=== PATIENT | male | born 1980 | race Caucasian/White ===

== ENCOUNTER 2023-08-09 10:39 | Inpatient (IN) | payer SELFPAY ==
[~2023-08-09] VITALS: Ht 175.3 cm; Wt 58.1 kg
[2023-08-09 10:49] VITALS: O2SAT 96
[2023-08-09 11:02] LABS: BASOPHILS % 0.4 % (0.0-2.0); EOSINOPHILS % 0.4 % (0.0-5.0); HEMATOCRIT. 35.8 % (42.0-52.0); HEMOGLOBIN. 12.2 g/dL (14.0-18.0); LYMPHOCYTES % 39.5 % (20.0-50.0); MEAN CORPUSCULAR HEMOGLOBIN 30.2 pg (28.0-32.0); MEAN CORPUSCULAR HGB CONC 34.2 g/dL (31.0-37.0); MEAN CORPUSCULAR VOLUME 88.4 fL (80.0-94.0); MEAN PLATELET VOLUME 7.3 fl (7.4-10.4); MONOCYTES % 8.4 % (2.0-8.0); NEUTROPHILS % 51.3 % (40.0-76.0); PLATELET 311 x1000/uL (130-400); RED BLOOD CELL COUNT 4.05 mill/uL (4.7-6.1); RED CELL DISTRIBUTION WIDTH 13.6 % (11.6-14.6)
[2023-08-09 11:24] LABS: ALANINE AMINOTRANSFERASE 19 IU/L (10-49); ALBUMIN 3.8 g/dL (3.2-4.8); ASPARTATE AMINOTRANSFERASE 25 IU/L (<34); BILIRUBIN TOTAL 0.7 mg/dL (0.1-1.0); CALCIUM 8.4 mg/dL (8.7-10.4); CARBON DIOXIDE 29 mEq/L (21-32); CHLORIDE 104 mEq/L (98-107); CREATININE 0.7 mg/dL (0.6-1.3); GLUCOSE 174 mg/dL (70-105); POTASSIUM 3.1 mEq/L (3.5-5.1); SODIUM 138 mEq/L (136-145); UREA NITROGEN BLOOD 11 mg/dL (9-23)
[2023-08-09 11:32] LABS: ETHANOL BLOOD < 10 mg/dL (<10)
[2023-08-10 02:33] LABS: CLARITY URINE CLEAR (CLEAR); COLOR URINE YELLOW (YELLOW); GLUCOSE URINE NEGATIVE (NEGATIVE); KETONES URINE 1+ (NEGATIVE); LEUKOCYTE ESTERASE URINE NEGATIVE (NEGATIVE); NITRITE URINE NEGATIVE (NEGATIVE); OCCULT BLOOD URINE NEGATIVE (NEGATIVE); PROTEIN URINE TRACE (NEGATIVE); SPECIFIC GRAVITY URINE 1.021 (1.005-1.030)
[2023-08-10 02:56] LABS: RBC URINE 0-2 /hpf (0-2); WBC URINE 0-2 /hpf (0-2)
[2023-08-10 02:57] LABS: BACTERIA URINE NONE SEEN; SQUAMOUS EPITHELIAL CELL URINE FEW /lpf (RARE/1+)
[2023-08-10 03:54] LABS: *AMPHETAMINES SCREEN URINE NEGATIVE (NEGATIVE); *BARBITURATES SCREEN URINE NEGATIVE (NEGATIVE); *BENZODIAZEPINES SCREEN URINE NEGATIVE (NEGATIVE); *COCAINE SCREEN URINE NEGATIVE (NEGATIVE); ECSTASY MDMA SCREEN URINE NEGATIVE (NEGATIVE); METHADONE URINE SCREEN Neg (NEGATIVE); OPIATES URINE SCREEN NEGATIVE (NEGATIVE); PHENCYCLIDINE URINE SCREEN NEGATIVE (NEGATIVE)
[2023-08-10 10:24] VITALS: BP 123/78; PULSE 89; RESP 18; TEMP 97.8
[2023-08-10] MEDS ORDERED: ONDANSETRON HCL 4MG/2ML INJ IV PRN (10:30)
[2023-08-10] MEDS ORDERED: ACETAMINOPHEN 325MG TABLET PO PRN (10:30)
[2023-08-10 10:50] VITALS: BP 123/78; PULSE 89; RESP 18; TEMP 97.8
[2023-08-10] MEDS ORDERED: POTASSIUM CHLORIDE 20MEQ TABLET SR PO NR (12:00)
[2023-08-10 16:00] VITALS: BP 116/70; PULSE 96; RESP 18; TEMP 98.1
[2023-08-10 20:00] VITALS: BP 108/68; PULSE 107; RESP 20; TEMP 99.6
[2023-08-11 04:00] VITALS: BP 124/71; PULSE 107; RESP 19; TEMP 98.6
[2023-08-11 08:00] VITALS: BP 143/75; PULSE 99; RESP 18; TEMP 98.1
[2023-08-11 12:00] VITALS: BP 132/71; PULSE 95; RESP 18; TEMP 98
[2023-08-11 16:00] VITALS: BP 107/66; PULSE 96; RESP 18; TEMP 98.8
[2023-08-11 20:54] VITALS: BP 117/68; PULSE 96; RESP 16; TEMP 98.2
[2023-08-12 00:26] VITALS: BP 116/74; PULSE 84; RESP 19; TEMP 97.8
[2023-08-12 04:00] VITALS: BP 93/60; PULSE 92; RESP 19; TEMP 97.8
[2023-08-12 08:00] VITALS: BP 130/78; PULSE 94; RESP 18; TEMP 98.2
[2023-08-12 12:00] VITALS: BP 114/67; PULSE 91; RESP 18; TEMP 96.9
== END 2023-08-12 12:20 | disposition left against medical advice (07) | DRG 812 ==
LOC: ER 11:07 → MICUSO 12:49 → 7WST 08-10 10:28
PROVIDERS: ADMIT Internal Medicine; ATTEND Internal Medicine
DX: T40.411A Poisoning by fentanyl or fentanyl analogs, accidental (unintentional), initial encounter (principal); G92.9 Unspecified toxic encephalopathy; E87.6 Hypokalemia; Z53.29 Procedure and treatment not carried out because of patient's decision for other reasons; Z79.899 Other long term (current) drug therapy; Y92.89 Other specified places as the place of occurrence of the external cause
CPT/HCPCS: 36415; 80053; 80305; 80320; 81003; 85025; 99285; G0480